=== PATIENT | female | born 1965 | race Hispanic/Latino ===

== ENCOUNTER 2019-04-14 22:35 | Emergency (ER) | payer SELFPAY ==
[2019-04-14 22:52] VITALS: BP 153/71
[2019-04-15 00:43] LABS: Basophils # (Auto) 0.1 K/mm3 (0.0-0.1); Basophils % (Auto) 0.7 % (0.0-1.8); Eosinophils # (Auto) 0.2 K/mm3 (0.0-0.4); Eosinophils % (Auto) 2.2 % (0.0-4.3); Hematocrit 39.9 % (30.3-42.9); Hemoglobin 13.5 gm/dl (10.1-14.3); Lymphocytes % (Auto) 33.9 % (13.4-35.0); Mean Corpuscular HGB Conc 34 % (30-34); Mean Corpuscular Volume 91 fl (79-97); Monocytes # (Auto) 0.7 K/mm3 (0.0-0.8); Monocytes % (Auto) 7.8 % (0.0-7.3); Platelet Count 237 K/mm3 (140-440); Red Blood Count 4.38 M/mm3 (3.65-5.03); Red Cell Distribution Width 15.1 % (13.2-15.2)
[2019-04-15 01:09] LABS: Alanine Aminotransferase 12 units/L (7-56); Albumin 3.7 g/dL (3.9-5); BUN/Creatinine Ratio 15; Blood Urea Nitrogen 12 mg/dL (7-17); Calcium 9.1 mg/dL (8.4-10.2); Hemolysis Index 12
[2019-04-15] MEDS ORDERED: LASIX PO ONE (01:38)
--- NOTE | 2019-04-15 01:42 | Emergency Department Report ---
ED Extremity Problem HPI - General Chief complaint: Extremity Injury, Lower Stated complaint: LEG PAIN, FOOT PAIN Time Seen by Provider: 04/15/19 00:03 Source: patient Mode of arrival: Ambulatory Limitations: No Limitations - History of Present Illness Initial comments: pt is a 53 yo female who presents for chronic BLE edema that began a year ago. She states she chronically has left sided lower extremity swelling more than the right lower extremity. The patient states she has seen her doctor several times for this and states she does not know what it is from. The patient states she also has a rash to the bilateral hands that began yesterday. The patient states she has been constantly washing her hands at work in dish water. The patient denies any itching. no PMHx, no daily meds. The patient is a smoker, non drinker, no drug use. - Related Data Previous Rx's Medication Instructions Recorded Last Taken Type Ibuprofen [Motrin 600 MG tab] 600 mg PO Q8H PRN #14 tablet 09/20/18 Unknown Rx Clotrimazole/Betamethasone Dip 1 gm TP BID 7 Days cream..g. 04/15/19 Unknown Rx [Lotrisone Cream] Allergies Allergy/AdvReac Type Severity Reaction Status Date / Time carisoprodol [From Soma] Allergy Intermediate Unknown Verified 09/20/18 21:23 ED Review of Systems ROS: Stated complaint: LEG PAIN, FOOT PAIN Other details as noted in HPI Comment: All other systems reviewed and negative ED Past Medical Hx - Past Medical History Previous Medical History?: No - Surgical History Past Surgical History?: No Additional Surgical History: Partial Thyroid removal - Social History Smoking Status: Current Every Day Smoker - Medications Home Medications: Home Medications Medication Instructions Recorded Confirmed Last Taken Type Ibuprofen [Motrin 600 MG tab] 600 mg PO Q8H PRN #14 tablet 09/20/18 Unknown Rx Clotrimazole/Betamethasone Dip 1 gm TP BID 7 Days cream..g. 04/15/19 Unknown Rx [Lotrisone Cream] ED Physical Exam - General Limitations: No Limitations General appearance: alert, in no apparent distress - Head Head exam: Present: atraumatic, normocephalic - Eye Eye exam: Present: normal appearance - Respiratory Respiratory exam: Present: normal lung sounds bilaterally. Absent: respiratory distress, wheezes, rales, rhonchi, stridor, chest wall tenderness, accessory muscle use, decreased breath sounds, prolonged expiratory - Cardiovascular Cardiovascular Exam: Present: regular rate, normal rhythm, normal heart sounds. Absent: systolic murmur, diastolic murmur, rubs, gallop - Extremities Exam Extremities exam: Present: other (bilateral LE edema, left greater than right, non pitting, no skin changes) - Neurological Exam Neurological exam: Present: alert, oriented X3 - Psychiatric Psychiatric exam: Present: normal affect, normal mood - Skin Skin exam: Present: warm, dry, other (small areas of macules/blisters to the dorsal surface of the hands, no rash present on the palmar surface, no drainage) ED Course Vital Signs 04/14/19 04/14/19 04/15/19 22:42 22:49 02:23 Temperature 98.3 F 98.3 F 98.3 F Pulse Rate 89 88 88 Respiratory 18 18 18 Rate Blood Pressure 153/71 153/71 O2 Sat by Pulse 98 97 97 Oximetry ED Medical Decision Making - Lab Data Result diagrams: 04/15/19 00:20 04/15/19 00:20 Lab Results 04/15/19 04/15/19 Range/Units 00:20 00:20 WBC 8.8 (4.5-11.0) K/mm3 RBC 4.38 (3.65-5.03) M/mm3 Hgb 13.5 (10.1-14.3) gm/dl Hct 39.9 (30.3-42.9) % MCV 91 (79-97) fl MCH 31 (28-32) pg MCHC 34 (30-34) % RDW 15.1 (13.2-15.2) % Plt Count 237 (140-440) K/mm3 Lymph % (Auto) 33.9 (13.4-35.0) % Polk % (Auto) 7.8 H (0.0-7.3) % Eos % (Auto) 2.2 (0.0-4.3) % Baso % (Auto) 0.7 (0.0-1.8) % Lymph # 3.0 (1.2-5.4) K/mm3 Polk # 0.7 (0.0-0.8) K/mm3 Eos # 0.2 (0.0-0.4) K/mm3 Baso # 0.1 (0.0-0.1) K/mm3 Seg Neutrophils % 55.4 (40.0-70.0) % Seg Neutrophils # 4.9 (1.8-7.7) K/mm3 Sodium 138 (137-145) mmol/L Potassium 3.9 (3.6-5.0) mmol/L Chloride 102.3 (98-107) mmol/L Carbon Dioxide 22 (22-30) mmol/L Anion Gap 18 mmol/L BUN 12 (7-17) mg/dL Creatinine 0.8 (0.7-1.2) mg/dL Estimated GFR > 60 ml/min BUN/Creatinine Ratio 15 % Glucose 181 H (65-100) mg/dL Calcium 9.1 (8.4-10.2) mg/dL Total Bilirubin < 0.20 (0.1-1.2) mg/dL AST 11 (5-40) units/L ALT 12 (7-56) units/L Alkaline Phosphatase 67 (35-129) units/L NT-Pro-B Natriuret Pep 29.99 (0-900) pg/mL Total Protein 6.9 (6.3-8.2) g/dL Albumin 3.7 L (3.9-5) g/dL Albumin/Globulin Ratio 1.2 % - Medical Decision Making labs with normal kidney function, normal liver function, normal BNP. pt given a dose of lasix for her chronic LE edema while in the ED. advised to see her PCP in the next 2-3 days. pt rash on her hands appears consistent with contact dermatitis. pt given lotrisone, advised to use as prescribed. discussed to discuss with her PCP as well. return to the emergency room for any new or worsening symptoms. Critical care attestation.: If time is entered above; I have spent that time in minutes in the direct care of this critically ill patient, excluding procedure time. ED Disposition Clinical Impression: Swelling of both lower extremities, Rash Disposition: DC-01 TO HOME OR SELFCARE Is pt being admited?: No Does the pt Need Aspirin: No Condition: Stable Instructions: Acute Rash (ED), Leg Edema (ED) Additional Instructions: Please use medication as prescribed. follow up with your primary care doctor in the next 2-3 days. return to the emergency room for any new or worsening symptoms. Prescriptions: Clotrimazole/Betamethasone Dip [Lotrisone Cream] 1 gm TP BID 7 Days cream..g. Referrals: BRIAN FERGUSON MD [Primary Care Provider] - 2-3 Days Time of Disposition: 01:47 Print Language: LATVIAN
== END 2019-04-15 02:24 | disposition home or self-care (01) ==
LOC: ED 22:35
DX: R60.0 Localized edema (principal); R21 Rash and other nonspecific skin eruption
CPT/HCPCS: 36415; 80053; 83880; 85025

== ENCOUNTER 2019-05-30 22:44 | Emergency (ER) | payer SELFPAY ==
[2019-05-30 22:55] VITALS: BP 148/58
[2019-05-30 23:24] LABS: Basophils # (Auto) 0.1 K/mm3 (0.0-0.1); Eosinophils # (Auto) 0.1 K/mm3 (0.0-0.4); Eosinophils % (Auto) 1.1 % (0.0-4.3); Hematocrit 39.4 % (30.3-42.9); Hemoglobin 13.5 gm/dl (10.1-14.3); Lymphocytes # (Auto) 2.5 K/mm3 (1.2-5.4); Lymphocytes % (Auto) 20.3 % (13.4-35.0); Mean Corpuscular HGB Conc 34 % (30-34); Mean Corpuscular Volume 91 fl (79-97); Monocytes # (Auto) 0.8 K/mm3 (0.0-0.8); Monocytes % (Auto) 6.7 % (0.0-7.3); Platelet Count 235 K/mm3 (140-440); Red Blood Count 4.34 M/mm3 (3.65-5.03)
[2019-05-30 23:44] LABS: Albumin 3.9 g/dL (3.9-5)
[2019-05-31] MEDS ORDERED: TYLENOL PO ONE (02:07)
[2019-05-31] MEDS ORDERED: IBUPROFEN PO ONE (02:07)
[2019-05-31 04:06] LABS: Bilirubin,Urine NEG (Negative); Blood,Urine LG (Negative); Calcium Oxalate Crystals,Urine 3+; Color,Urine Amber (Yellow); Mucus,Urine FEW /HPF
[2019-05-31 04:07] LABS: RBC,Urine > 182.0 /HPF (0.0-6.0)
[2019-05-31] MEDS ORDERED: LEVAQUIN PO ONE (04:21)
--- NOTE | 2019-05-31 04:25 | Emergency Department Report ---
ED General Adult HPI - General Chief complaint: Back Pain/Injury Stated complaint: BACK PAIN, CRAMPING IN LEGS Time Seen by Provider: 05/31/19 01:50 Source: patient Mode of arrival: Ambulatory Limitations: No Limitations - History of Present Illness Initial comments: Patient is a 53-year-old white female with a history of chronic back pain who presents to the ED with complaint of acute exacerbation of her chronic back pain but it is diffuse into her lower extremities bilaterally for the last 1 week, worse in the last 2 days. Patient also complains of diffuse body aches and pains with urinary frequency and urgency. Patient denies fever, chills, nausea, vomiting, abdominal pain, chest pain, heavy lifting, traumatic injury, dizziness, numbness and tingling of upper and lower extremities bilaterally, saddle paresthesia, urinary or bowel incontinence or fall. MD Complaint: Back pain with diffuse body aches -: Gradual, week(s) (1) Location: back, upper extremity, lower extremity Radiation: non-radiation Severity scale (0 -10): 7 Quality: aching, sharp Consistency: constant Improves with: none Worsens with: none Associated Symptoms: denies other symptoms, malaise. denies: confusion, cough, diaphoresis, fever/chills, headaches, loss of appetite, nausea/vomiting, rash, seizure, shortness of breath, syncope, weakness Treatments Prior to Arrival: none - Related Data Previous Rx's Medication Instructions Recorded Last Taken Type Ibuprofen [Motrin 600 MG tab] 600 mg PO Q8H PRN #14 tablet 09/20/18 Unknown Rx Clotrimazole/Betamethasone Dip 1 gm TP BID 7 Days cream..g. 04/15/19 Unknown Rx [Lotrisone Cream] Naproxen [Naprosyn TAB] 500 mg PO BID PRN #20 tablet 05/31/19 Unknown Rx Sulfamethoxazole/Trimethoprim 1 each PO Q12H #20 tablet 05/31/19 Unknown Rx [Bactrim DS TAB] predniSONE [Deltasone] 60 mg PO QDAY #15 tab 05/31/19 Unknown Rx traMADol [Ultram] 50 mg PO Q6HR PRN #12 tablet 05/31/19 Unknown Rx Allergies Allergy/AdvReac Type Severity Reaction Status Date / Time carisoprodol [From Soma] Allergy Intermediate Unknown Verified 10/31/18 21:23 ED Review of Systems ROS: Stated complaint: BACK PAIN, CRAMPING IN LEGS Other details as noted in HPI Constitutional: denies: chills, fever Eyes: denies: eye pain, eye discharge, vision change ENT: denies: ear pain, throat pain Respiratory: denies: cough, shortness of breath, wheezing Cardiovascular: denies: chest pain, palpitations Endocrine: no symptoms reported Gastrointestinal: denies: abdominal pain, nausea, diarrhea Genitourinary: denies: urgency, dysuria, discharge Musculoskeletal: back pain, arthralgia, myalgia. denies: joint swelling Skin: denies: rash, lesions Neurological: denies: headache, weakness, paresthesias Psychiatric: denies: anxiety, depression Hematological/Lymphatic: denies: easy bleeding, easy bruising ED Past Medical Hx - Past Medical History Previous Medical History?: No - Surgical History Past Surgical History?: Yes Additional Surgical History: Partial Thyroid removal - Social History Smoking Status: Current Every Day Smoker Substance Use Type: None - Medications Home Medications: Home Medications Medication Instructions Recorded Confirmed Last Taken Type Ibuprofen [Motrin 600 MG tab] 600 mg PO Q8H PRN #14 tablet 09/20/18 Unknown Rx Clotrimazole/Betamethasone Dip 1 gm TP BID 7 Days cream..g. 04/15/19 Unknown Rx [Lotrisone Cream] Naproxen [Naprosyn TAB] 500 mg PO BID PRN #20 tablet 05/31/19 Unknown Rx Sulfamethoxazole/Trimethoprim 1 each PO Q12H #20 tablet 05/31/19 Unknown Rx [Bactrim DS TAB] predniSONE [Deltasone] 60 mg PO QDAY #15 tab 05/31/19 Unknown Rx traMADol [Ultram] 50 mg PO Q6HR PRN #12 tablet 05/31/19 Unknown Rx ED Physical Exam - General Limitations: No Limitations General appearance: alert, in no apparent distress - Head Head exam: Present: atraumatic, normocephalic, normal inspection - Eye Eye exam: Present: normal appearance, PERRL, EOMI. Absent: scleral icterus, conjunctival injection, nystagmus Pupils: Present: normal accommodation - ENT ENT exam: Present: normal exam, normal orophraynx, mucous membranes moist, TM's normal bilaterally, normal external ear exam - Neck Neck exam: Present: normal inspection, full ROM - Respiratory Respiratory exam: Present: normal lung sounds bilaterally. Absent: respiratory distress, wheezes, rales, rhonchi, chest wall tenderness, accessory muscle use, decreased breath sounds, prolonged expiratory - Cardiovascular Cardiovascular Exam: Present: regular rate, normal rhythm, normal heart sounds. Absent: systolic murmur, diastolic murmur, rubs, gallop - GI/Abdominal GI/Abdominal exam: Present: soft, normal bowel sounds. Absent: distended, tenderness, guarding, rebound, hyperactive bowel sounds, hypoactive bowel sounds, organomegaly, mass - Rectal Rectal exam: Present: deferred - Extremities Exam Extremities exam: Present: normal inspection, full ROM, normal capillary refill - Back Exam Back exam: Present: normal inspection, full ROM, tenderness, CVA tenderness (R), CVA tenderness (L), muscle spasm, paraspinal tenderness, other (diffuse palpable lumbosacral paraspinal musculoskeletal tenderness; bilateral CVA tenderness) - Neurological Exam Neurological exam: Present: alert, oriented X3, CN II-XII intact, normal gait, reflexes normal - Psychiatric Psychiatric exam: Present: normal affect, normal mood - Skin Skin exam: Present: warm, dry, intact, normal color. Absent: rash ED Course Vital Signs 05/30/19 22:49 Temperature 98.7 F Pulse Rate 84 Respiratory 14 Rate Blood Pressure 148/58 O2 Sat by Pulse 97 Oximetry - Reevaluation(s) Reevaluation #1: 05/31/19 04:26 Patient is alert and oriented 3 and is not in any distress with normal vital signs. Patient is somnolent and the physical exam but arousable. Lab test results shows acute leukocytosis of 12,400, and significant unit tract infection and urinalysis. Patient was treated for pain in the ED and on reevaluation, patient is well controlled and patient is sleeping comfortably in the chair and in no distress. Patient discharged home and pain medications and muscle relaxants as well as antibiotics for acute urinary tract infection. Patient is advised to follow-up with her primary care physician in 7-10 days for reevaluation or return to the ED immediately if symptoms get worse. ED Medical Decision Making - Lab Data Result diagrams: 05/30/19 23:02 05/30/19 23:02 - Medical Decision Making Patient is alert and oriented 3 and is not in any distress with normal vital signs. Patient is somnolent and the physical exam but arousable. Lab test results shows acute leukocytosis of 12,400, and significant unit tract infection and urinalysis. Patient was treated for pain in the ED and on reevaluation, patient is well controlled and patient is sleeping comfortably in the chair and in no distress. Patient discharged home and pain medications and muscle relaxants as well as antibiotics for acute urinary tract infection. Patient is advised to follow-up with her primary care physician in 7-10 days for reevaluation or return to the ED immediately if symptoms get worse. - Differential Diagnosis Acute UTI; Chronic low back pain; Muscle spasm of back Critical care attestation.: If time is entered above; I have spent that time in minutes in the direct care of this critically ill patient, excluding procedure time. ED Disposition Clinical Impression: Acute exacerbation of chronic low back pain, Acute urinary tract infection, Spasm of muscle of lower back Disposition: DC- TO HOME OR SELFCARE Is pt being admited?: No Does the pt Need Aspirin: No Condition: Stable Instructions: Urinary Tract Infection in Women (ED), Muscle Spasm (ED), Chronic Back Pain (ED) Additional Instructions: Take medications with food, drink plenty of fluids and follow up with your primary care physician in 7-10 days for reevaluation. Return to the ED immediately if symptoms get worse. Prescriptions: Sulfamethoxazole/Trimethoprim [Bactrim DS TAB] 1 each PO Q12H #20 tablet predniSONE [Deltasone] 60 mg PO QDAY #15 tab Naproxen [Naprosyn TAB] 500 mg PO BID PRN #20 tablet PRN Reason: Pain , Severe (7-10) traMADol [Ultram] 50 mg PO Q6HR PRN #12 tablet PRN Reason: Pain Referrals: [facility] [Outside] - 3-5 Days Time of Disposition: 04:29 Print Language: [place]
== END 2019-05-31 04:45 | disposition home or self-care (01) ==
LOC: ED 22:44
DX: N39.0 Urinary tract infection, site not specified (principal); M62.830 Muscle spasm of back; M54.5 Low back pain
CPT/HCPCS: 36415; 80053; 81001; 85025

== ENCOUNTER 2019-07-03 17:30 | Emergency (ER) | payer OTHER ==
--- NOTE | 2019-07-03 17:43 | Event Note ---
ED Screening Note ED Screening Note: pt presents with a cough that began two weeks ago +mucus production +congestion +subjective fever +smoker This initial assessment/diagnostic orders/clinical plan/treatment(s) is/are subject to change based on patients health status, clinical progression and re- assessment by fellow clinical providers in the ED. Further treatment and workup at subsequent clinical providers discretion. Patient/guardian urged not to elope from the ED as their condition may be serious if not clinically assessed and m anaged. Initial orders include: CXR
[2019-07-03 17:46] VITALS: BP 123/68
--- NOTE | 2019-07-03 18:14 | XRay Report ---
CHEST 2 VIEWS INDICATION: cough. COMPARISON: None. FINDINGS: Support devices: None. Heart: Within normal limits. Lungs/Pleura: No acute air space or interstitial disease. No significant pleural effusion. IMPRESSION: No acute findings. Signer Name: Harsha Bonner MD Signed: 07/03/2019 6:10 PM Workstation Name: [id number]
[2019-07-03 19:08] LABS: Bacteria,Urine 1+ /HPF (Negative); Bilirubin,Urine NEG (Negative); Blood,Urine SM (Negative); Color,Urine Yellow (Yellow); Mucus,Urine FEW /HPF; Protein,Urine <15 mg/dL mg/dL (Negative)
[2019-07-03] MEDS ORDERED: TYLENOL/CODEINE PO ONE (19:58)
--- NOTE | 2019-07-03 20:14 | Emergency Department Report ---
Minor Respiratory - HPI Chief Complaint: Upper Respiratory Infection Stated Complaint: FEVER /COUGHING/CHEST CONGESTION Time Seen by Provider: 07/03/19 17:41 Duration: 2 Days Severity: mild Minor Respiratory: Yes Cough, No Rhinorrhea, No Sore Throat, No Able to Tolerate Fluids, No Ear Pain, No Sick Contacts, No Hemoptysis, No Chest Pain, No Shortness of Breath, No Fever Other History: This is a 53-year-old female presents complaining of intermittent in coughing for the past couple weeks. Patient also complaining of her right foot pain. She denies any injuries trauma or fall to the foot. Patient states she has a history of a right foot pain 2-3 years ago. ED Review of Systems ROS: Stated complaint: FEVER /COUGHING/CHEST CONGESTION Other details as noted in HPI Comment: All other systems reviewed and negative ED Past Medical Hx - Past Medical History Previous Medical History?: No - Surgical History Past Surgical History?: Yes Additional Surgical History: Partial Thyroid removal - Social History Smoking Status: Never Smoker Substance Use Type: None - Medications Home Medications: Home Medications Medication Instructions Recorded Confirmed Last Taken Type Ibuprofen [Motrin 600 MG tab] 600 mg PO Q8H PRN #14 tablet 09/20/18 Unknown Rx Clotrimazole/Betamethasone Dip 1 gm TP BID 7 Days cream..g. 04/15/19 Unknown Rx [Lotrisone Cream] Sulfamethoxazole/Trimethoprim 1 each PO Q12H #20 tablet 05/31/19 Unknown Rx [Bactrim DS TAB] predniSONE [Deltasone] 60 mg PO QDAY #15 tab 05/31/19 Unknown Rx traMADol [Ultram] 50 mg PO Q6HR PRN #12 tablet 05/31/19 Unknown Rx Benzonatate [Tessalon Perles] 100 mg PO Q8HR #20 capsule 07/03/19 Unknown Rx Cyclobenzaprine [Flexeril] 10 mg PO QHS PRN #15 tablet 07/03/19 Unknown Rx Naproxen [Naprosyn TAB] 500 mg PO BID PRN #20 tablet 07/03/19 Unknown Rx Minor Respiratory Exam - Exam General: Vital signs noted. No distress. Alert and acting appropriately. HEENT: Yes Moist Mucous Membranes, No Pharyngeal Erythema, No Pharyngeal Exudates, No Rhinorrhea, No Conjuctival Injection, No Frontal Tenderness, No Maxillary Tenderness Ear: Neither TM Bulge, Neither TM Erythema, Neither EAC Pain, Neither EAC Discharge Neck: Yes Supple, No Adenopathy Lungs: Yes Good Air Exchange, No Wheezes, No Ronchi, No Stridor, No Cough, No Labored Respirations, No Retractions, No Use of Accessory Muscles, No Other Abnormal Lung Sounds Heart: Yes Regular, No Murmur Abdomen: Yes Normal Bowel Sounds, No Tenderness, No Peritoneal Signs Skin: No Rash, No Edema Neurologic: Alert and oriented, no deficits. Musculoskeletal: Unremarkable. No swelling, no deformity, no tenderness noted to the right foot upon palpation ED Course Vital Signs 07/03/19 17:41 Temperature 98.6 F Pulse Rate 91 H Respiratory 16 Rate Blood Pressure 123/68 [Left] O2 Sat by Pulse 98 Oximetry ED Medical Decision Making - Radiology Data Radiology results: report reviewed, image reviewed Fluoro Time In Minutes: CHEST 2 VIEWS INDICATION: cough. COMPARISON: None. FINDINGS: Support devices: None. Heart: Within normal limits. Lungs/Pleura: No acute air space or interstitial disease. No significant pleural effusion. IMPRESSION: No acute findings. Signer Name: Harsha Bonner MD Signed: 07/03/2019 6:10 PM Workstation Name: [id number] Transcribed By: ES Dictated By: Harsha Bonner MD Electronically Authenticated By: Harsha Bonner MD Signed Date/Time: 07/03/19 1810 - Medical Decision Making This is a 53-year-old female presents with upper respiratory infection Patient also complaining of right foot pain from hairline fracture she had many years ago. Chest x-ray shows no acute symptoms. Patient received Tylenol with codeine in the ED. Discussed follow-up with primary care physician in 3-5 days. Patient is in no acute distress or respiratory distress Critical care attestation.: If time is entered above; I have spent that time in minutes in the direct care of this critically ill patient, excluding procedure time. ED Disposition Clinical Impression: Upper respiratory infection, Foot pain, right Disposition: DC-01 TO HOME OR SELFCARE Is pt being admited?: No Does the pt Need Aspirin: No Condition: Stable Instructions: Upper Respiratory Infection (ED), Arthralgia (ED) Additional Instructions: Make sure to follow up with the primary care physician as discussed. Take all your medications as you've been prescribed. If you have any worsening symptoms or develop new symptoms please return to ED immediately. Prescriptions: Cyclobenzaprine [Flexeril] 10 mg PO QHS PRN #15 tablet PRN Reason: Muscle Spasm Naproxen [Naprosyn TAB] 500 mg PO BID PRN #20 tablet PRN Reason: Pain , Severe (7-10) Benzonatate [Tessalon Perles] 100 mg PO Q8HR #20 capsule Referrals: BRIAN FERGUSON MD [Primary Care Provider] - 3-5 Days [facility] [Outside] - 3-5 Days [facility] [Outside] - 3-5 Days Forms: Work/School Release Form(ED), Accompanied Note Time of Disposition: 20:45
== END 2019-07-03 20:54 | disposition home or self-care (01) ==
LOC: ED 17:30
DX: J06.9 Acute upper respiratory infection, unspecified (principal); M79.671 Pain in right foot; E89.0 Postprocedural hypothyroidism; F17.200 Nicotine dependence, unspecified, uncomplicated; Z79.899 Other long term (current) drug therapy; Z88.8 Allergy status to other drugs, medicaments and biological substances
CPT/HCPCS: 71046; 81001

== ENCOUNTER 2019-07-05 04:18 | Emergency (ER) | payer OTHER ==
--- NOTE | 2019-07-05 05:15 | XRay Report ---
CHEST 2 VIEWS INDICATION: productive cough, intermittent fever. Cough for the past 6 months COMPARISON: 07/03/2019 FINDINGS: Support devices: None. Heart: Within normal limits. Lungs/pleura: Rounded nodular density over the medial right lung base measuring 3.8 cm. Otherwise neville ar lungs. No pneumothorax. Additional findings: None. IMPRESSION: 1. Medial right basilar masslike density as above. Recommend follow-up CT chest with contrast. Otherw ise clear lungs. Signer Name: Dev Francois MD Signed: 07/05/2019 5:11 AM Workstation Name: [id number]
[2019-07-05 05:34] LABS: Basophils % (Auto) 0.6 % (0.0-1.8); Eosinophils # (Auto) 0.1 K/mm3 (0.0-0.4); Eosinophils % (Auto) 1.6 % (0.0-4.3); Hematocrit 39.4 % (30.3-42.9); Hemoglobin 13.5 gm/dl (10.1-14.3); Lymphocytes # (Auto) 1.8 K/mm3 (1.2-5.4); Lymphocytes % (Auto) 21.6 % (13.4-35.0); Mean Corpuscular HGB Conc 34 % (30-34); Mean Corpuscular Volume 90 fl (79-97); Monocytes # (Auto) 0.6 K/mm3 (0.0-0.8); Monocytes % (Auto) 7.7 % (0.0-7.3); Platelet Count 250 K/mm3 (140-440); Red Blood Count 4.37 M/mm3 (3.65-5.03); Red Cell Distribution Width 15.1 % (13.2-15.2)
[2019-07-05] MEDS ORDERED: DUONEB *Not for PRN Use IH ONE (05:39)
[2019-07-05] MEDS ORDERED: IBUPROFEN PO ONE (05:39)
[2019-07-05] MEDS ORDERED: SOLU-Medrol IM ONE (05:39)
[2019-07-05 05:54] LABS: Albumin 3.5 g/dL (3.9-5); Calcium 8.9 mg/dL (8.4-10.2)
[2019-07-05 06:32] LABS: Bilirubin,Urine NEG (Negative); Blood,Urine NEG (Negative); Color,Urine Yellow (Yellow); Mucus,Urine FEW /HPF; Protein,Urine <15 mg/dL mg/dL (Negative)
--- NOTE | 2019-07-05 06:45 | Emergency Department Report ---
- General Chief Complaint: Upper Respiratory Infection Stated Complaint: FEVER/CONGESTION/FOOT SWELLING Time Seen by Provider: 07/05/19 05:25 Source: patient Mode of arrival: Ambulatory Limitations: No Limitations - History of Present Illness Initial Comments: Patient is a 53-year-old white female with a medical history except heavy chronic tobacco smoking habit presented to the ED with acute onset of persistent nasal and sinus congestion, frontal sinus pressure, dry cough, wheezing and shortness of breath for the last 1 week, worse in the last 2 days. Patient denies dizziness, chest pain, fever, chills, abdominal pain, diaphoresis, sore throat, headache, neck pain, change in vision, palpitations, nausea, vomiting, diarrhea or syncope MD Complaint: cough, rhinorrhea, nasal congestion, sinus pain -: Sudden, week(s) Severity: severe Severity scale (0 -10): 7 Quality: aching, other (tightness) Consistency: intermittent Improves With: nothing Worsens With: nothing Context: sick contacts Associated Symptoms: denies other symptoms, myalgias, headache, rhinorrhea, nasal congestion, cough, shortness of breath. denies: fever, chills, diaphoresis, abdominal pain, nausea, vomiting, diarrhea, dysuria, confusion, right sweats, weight loss, epistaxis, hoarseness, ear pain Treatments Prior to Arrival: none - Related Data Previous Rx's Medication Instructions Recorded Last Taken Type Ibuprofen [Motrin 600 MG tab] 600 mg PO Q8H PRN #14 tablet 09/20/18 Unknown Rx Clotrimazole/Betamethasone Dip 1 gm TP BID 7 Days cream..g. 04/15/19 Unknown Rx [Lotrisone Cream] Sulfamethoxazole/Trimethoprim 1 each PO Q12H #20 tablet 05/31/19 Unknown Rx [Bactrim DS TAB] predniSONE [Deltasone] 60 mg PO QDAY #15 tab 05/31/19 Unknown Rx traMADol [Ultram] 50 mg PO Q6HR PRN #12 tablet 05/31/19 Unknown Rx Benzonatate [Tessalon Perles] 100 mg PO Q8HR #20 capsule 07/03/19 Unknown Rx Cyclobenzaprine [Flexeril] 10 mg PO QHS PRN #15 tablet 07/03/19 Unknown Rx Naproxen [Naprosyn TAB] 500 mg PO BID PRN #20 tablet 07/03/19 Unknown Rx ALBUTEROL Inhaler (OR & NICU) 1 - 2 puff IH Q6H PRN #1 inhalation 07/05/19 Unknown Rx [ProAir HFA Inhaler] Amoxicillin/Potassium Clav 1 each PO Q12H #20 tablet 07/05/19 Unknown Rx [Augmentin 875-125 Tablet] Brompheniramine/Pseudoephed/Dm 5 ml PO Q6H PRN #118 ml 07/05/19 Unknown Rx [Bromfed Dm Cough Syrup] Cetirizine HCl [Zyrtec 10mg tab] 10 mg PO DAILY #30 tablet 07/05/19 Unknown Rx Ibuprofen [Motrin] 600 mg PO Q8H PRN #20 tablet 07/05/19 Unknown Rx Prednisone [predniSONE 10 mg 10 mg PO .TAPER #21 tab.ds.pk 07/05/19 Unknown Rx (6-Day Pack, 21 Tabs)] Allergies Allergy/AdvReac Type Severity Reaction Status Date / Time carisoprodol [From Soma] Allergy Intermediate Unknown Verified 09/20/18 21:23 ED Review of Systems ROS: Stated complaint: FEVER/CONGESTION/FOOT SWELLING Other details as noted in HPI Constitutional: denies: chills, fever Eyes: denies: eye pain, eye discharge, vision change ENT: congestion. denies: ear pain, throat pain Respiratory: cough, shortness of breath, wheezing Cardiovascular: denies: chest pain, palpitations, edema, syncope Endocrine: no symptoms reported. denies: increased thirst, increased urine, unexplained weight gain Gastrointestinal: denies: abdominal pain, nausea, diarrhea Genitourinary: denies: urgency, dysuria, discharge Musculoskeletal: denies: back pain, joint swelling, arthralgia Skin: denies: rash, lesions Neurological: headache. denies: weakness, paresthesias Psychiatric: denies: anxiety, depression Hematological/Lymphatic: denies: easy bleeding, easy bruising ED Past Medical Hx - Past Medical History Previous Medical History?: Yes Additional medical history: enlarged uterus/in process of scheduling appt for hysterectomy - Surgical History Past Surgical History?: Yes Additional Surgical History: Partial Thyroid removal - Social History Smoking Status: Current Every Day Smoker Substance Use Type: None - Medications Home Medications: Home Medications Medication Instructions Recorded Confirmed Last Taken Type Ibuprofen [Motrin 600 MG tab] 600 mg PO Q8H PRN #14 tablet 09/20/18 Unknown Rx Clotrimazole/Betamethasone Dip 1 gm TP BID 7 Days cream..g. 04/15/19 Unknown Rx [Lotrisone Cream] Sulfamethoxazole/Trimethoprim 1 each PO Q12H #20 tablet 05/31/19 Unknown Rx [Bactrim DS TAB] predniSONE [Deltasone] 60 mg PO QDAY #15 tab 05/31/19 Unknown Rx traMADol [Ultram] 50 mg PO Q6HR PRN #12 tablet 05/31/19 Unknown Rx Benzonatate [Tessalon Perles] 100 mg PO Q8HR #20 capsule 07/03/19 Unknown Rx Cyclobenzaprine [Flexeril] 10 mg PO QHS PRN #15 tablet 07/03/19 Unknown Rx Naproxen [Naprosyn TAB] 500 mg PO BID PRN #20 tablet 07/03/19 Unknown Rx ALBUTEROL Inhaler (OR & NICU) 1 - 2 puff IH Q6H PRN #1 inhalation 07/05/19 Unknown Rx [ProAir HFA Inhaler] Amoxicillin/Potassium Clav 1 each PO Q12H #20 tablet 07/05/19 Unknown Rx [Augmentin 875-125 Tablet] Brompheniramine/Pseudoephed/Dm 5 ml PO Q6H PRN #118 ml 07/05/19 Unknown Rx [Bromfed Dm Cough Syrup] Cetirizine HCl [Zyrtec 10mg tab] 10 mg PO DAILY #30 tablet 07/05/19 Unknown Rx Ibuprofen [Motrin] 600 mg PO Q8H PRN #20 tablet 07/05/19 Unknown Rx Prednisone [predniSONE 10 mg 10 mg PO .TAPER #21 tab.ds.pk 07/05/19 Unknown Rx (6-Day Pack, 21 Tabs)] ED Physical Exam - General Limitations: No Limitations General appearance: alert, in no apparent distress - Head Head exam: Present: atraumatic, normocephalic, normal inspection - Eye Eye exam: Present: normal appearance, PERRL, EOMI Pupils: Present: normal accommodation - ENT ENT exam: Present: normal orophraynx, mucous membranes moist, TM's normal bilaterally, normal external ear exam, other (grossly congested nasal passages, frontal sinus pressure and tenderness) - Neck Neck exam: Present: normal inspection, full ROM. Absent: tenderness, meningismus, lymphadenopathy, thyromegaly - Respiratory Respiratory exam: Present: wheezes (diffuse mild wheezes throughout). Absent: respiratory distress, rales, rhonchi, chest wall tenderness, accessory muscle use, decreased breath sounds - Cardiovascular Cardiovascular Exam: Present: regular rate, normal rhythm, normal heart sounds. Absent: systolic murmur, diastolic murmur, rubs, gallop - GI/Abdominal GI/Abdominal exam: Present: soft, normal bowel sounds. Absent: tenderness, rebound, hyperactive bowel sounds, hypoactive bowel sounds, organomegaly - Rectal Rectal exam: Present: deferred - Extremities Exam Extremities exam: Present: normal inspection, full ROM, normal capillary refill - Back Exam Back exam: Present: normal inspection, full ROM. Absent: tenderness, CVA tenderness (R), CVA tenderness (L), muscle spasm, paraspinal tenderness - Neurological Exam Neurological exam: Present: alert, oriented X3, CN II-XII intact, normal gait, reflexes normal - Psychiatric Psychiatric exam: Present: normal affect, normal mood - Skin Skin exam: Present: warm, dry, intact, normal color. Absent: rash ED Course Vital Signs 07/05/19 04:26 Temperature 98 F Pulse Rate 82 Respiratory 18 Rate Blood Pressure 151/78 [Left] O2 Sat by Pulse 97 Oximetry - Reevaluation(s) Reevaluation #1: 07/05/19 07:17 This is a 53-year-old white female who is a chronic tobacco smoker who presents to the ED with complaint of persistent nasal and sinus congestion, frontal sinus pressure and tightness, dry cough with wheezing and shortness of breath for the last 1 week, worse in the last 2 days. The ED, patient is alert and oriented 3 and is not in distress with normal vital signs. Patient was treated in the ED with supplemental, DuoNeb. Medication. On reevaluation, patient's wheezing resolved and patient stated that she is feeling better. Lab test results were reviewed and are unremarkable. Chest x-ray shows a medial right basilar masslike density, and a follow-up CT chest with contrast was recommended outpatient. Otherwise clear lungs. Patient was discharged home on medications and advised to follow-up with her primary care physician for an outpatient referral for CT scan of the chest with contrast to characterize the masslike density in the right medial basilar region of the lung. Patient was also advised to return to the ED immediately if symptoms get worse. ED Medical Decision Making - Lab Data Result diagrams: 07/05/19 05:20 07/05/19 05:20 - Radiology Data Radiology results: report reviewed, image reviewed Findings [facility] [address] [place] [address] XRay Report Signed Patient: GILBERTO ESPARZA MR#: [id number] : 1965 Acct:[id number] Age/Sex: 53 / F ADM Date: 07/05/19 Loc: ED Attending Dr: Ordering Physician: HELEN LOVE MD Date of Service: 07/05/19 Procedure(s): XR chest routine 2V Accession Number(s): [id number] cc: HELEN LOVE MD Fluoro Time In Minutes: CHEST 2 VIEWS INDICATION: productive cough, intermittent fever. Cough for the past 6 months COMPARISON: 07/03/2019 FINDINGS: Support devices: None. Heart: Within normal limits. Lungs/pleura: Rounded nodular density over the medial right lung base measuring 3.8 cm. Otherwise clear lungs. No pneumothorax. Additional findings: None. IMPRESSION: 1. Medial right basilar masslike density as above. Recommend follow-up CT chest with contrast. Otherwise clear lungs. Signer Name: Dev Francois MD Signed: 07/05/2019 5:11 AM Workstation Name: [id number] Transcribed By: CELIA Dictated By: Dev Francois MD Electronically Authenticated By: Dev Francois MD Signed Date/Time: 07/05/19 0511 - Medical Decision Making This is a 53-year-old white female who is a chronic tobacco smoker who presents to the ED with complaint of persistent nasal and sinus congestion, frontal sinus pressure and tightness, dry cough with wheezing and shortness of breath for the last 1 week, worse in the last 2 days. The ED, patient is alert and oriented 3 and is not in distress with normal vital signs. Patient was treated in the ED with supplemental, DuoNeb. Medication. On reevaluation, patient's wheezing resolved and patient stated that she is feeling better. Lab test results were reviewed and are unremarkable. Chest x-ray shows a medial right basilar masslike density, and a follow-up CT chest with contrast was recommended outpatient. Otherwise clear lungs. Patient was discharged home on medications and advised to follow-up with her primary care physician for an outpatient referral for CT scan of the chest with contrast to characterize the masslike density in the right medial basilar region of the lung. Patient verbalized understanding of the recommendation. Patient was also advised to return to the ED immediately if symptoms get worse. - Differential Diagnosis acute sinusitis; acute URI; Bronchitis; Pneumonia; Dyspnea, Lung mass Critical care attestation.: If time is entered above; I have spent that time in minutes in the direct care of this critically ill patient, excluding procedure time. ED Disposition Clinical Impression: Acute upper respiratory infection Acute bronchitis Qualifiers: Bronchitis organism: other organism Qualified Code(s): J20.8 - Acute bronchitis due to other specified organisms Acute frontal sinusitis Qualifiers: Recurrence: not specified as recurrent Qualified Code(s): J01.10 - Acute frontal sinusitis, unspecified Disposition: TO HOME OR SELFCARE Is pt being admited?: No Does the pt Need Aspirin: No Condition: Stable Instructions: Upper Respiratory Infection (ED), Acute Bronchitis (ED), Acute Bacterial Rhinosinusitis (ED) Additional Instructions: Take medications with food, drink plenty of fluids and follow-up with your primary care physician in 7-10 days for reevaluation. Consider quitting tobacco smoking to improve your health. Return to the ED immediately if symptoms get worse. Prescriptions: Amoxicillin/Potassium Clav [Augmentin 875-125 Tablet] 1 each PO Q12H #20 tablet Brompheniramine/Pseudoephed/Dm [Bromfed Dm Cough Syrup] 5 ml PO Q6H PRN #118 ml PRN Reason: Cough Ibuprofen [Motrin] 600 mg PO Q8H PRN #20 tablet PRN Reason: Pain Prednisone [predniSONE 10 mg (6-Day Pack, 21 Tabs)] 10 mg PO .TAPER #21 tab.ds.pk ALBUTEROL Inhaler (OR & NICU) [ProAir HFA Inhaler] 1 - 2 puff IH Q6H PRN #1 inhalation PRN Reason: Shortness Of Breath Cetirizine HCl [Zyrtec 10mg tab] 10 mg PO DAILY #30 tablet Referrals: HERNANDO JEAN BAPTISTE MD [Primary Care Provider] - 3-5 Days Time of Disposition: 06:42 Print Language: SWEDISH
[2019-07-05 07:29] VITALS: BP 116/64
== END 2019-07-05 07:13 | disposition home or self-care (01) ==
LOC: ED 04:18
DX: J06.9 Acute upper respiratory infection, unspecified (principal); J20.8 Acute bronchitis due to other specified organisms; J01.10 Acute frontal sinusitis, unspecified; F17.200 Nicotine dependence, unspecified, uncomplicated; Z90.710 Acquired absence of both cervix and uterus; Z79.899 Other long term (current) drug therapy; Z88.8 Allergy status to other drugs, medicaments and biological substances
CPT/HCPCS: 36415; 71046; 80053; 81001; 83880; 84703; 85025; 94640; 96372; 99284; J2930

== ENCOUNTER 2019-11-22 16:59 | Emergency (ER) | payer SELFPAY ==
--- NOTE | 2019-11-22 20:16 | Event Note ---
ED Screening Note Date of service: 11/22/19 Time: 20:13 ED Screening Note: 54 y o f presents with pelvic pain with dysuria PMH: Extensive Fibroids also cc of vomitting, throat pain and pt visiting from [place] This initial assessment/diagnostic orders/clinical plan/treatment(s) is/are subject to change based on patients health status, clinical progression and re- assessment by fellow clinical providers in the ED. Further treatment and workup at subsequent clinical providers discretion. Patient/guardian urged not to elope from the ED as their condition may be serious if not clinically assessed and managed. Initial orders include: ua, acc eval
[2019-11-22 20:17] VITALS: BP 136/74
[2019-11-22] MEDS ORDERED: IBUPROFEN 800 MG TAB PO ONE (23:14)
--- NOTE | 2019-11-22 23:25 | Emergency Department Report ---
HPI - General Chief Complaint: Abdominal Pain Time Seen by Provider: 11/22/19 23:03 - HPI HPI: Room 45 The patient is a 64-year-old female presenting with a chief complaint of earache. The patient states she had bilateral ear pain and sore throat for the past 3 days. Patient also admits to episodes of vomiting and diarrhea. Patient denies cough or fever. Patient also admits to dysuria for a few days Location: [See above] Duration: [See above] Quality: [See above] Severity: [See above] Timing: [See above] Context: [See above] Modifying factors: [See above] Associated signs and symptoms: [see above] Method of transportation: Patient states she walked and took the bus to the emergency department ED Past Medical Hx - Past Medical History Previous Medical History?: No Additional medical history: enlarged uterus/in process of scheduling appt for hysterectomy - Surgical History Past Surgical History?: Yes Additional Surgical History: Partial Thyroid removal - Family History Family history: no significant - Social History Smoking Status: Current Every Day Smoker (1/3 pack per day) Substance Use Type: None (denies illicit drug use) - Medications Home Medications: Home Medications Medication Instructions Recorded Confirmed Last Taken Type Ibuprofen [Motrin 600 MG tab] 600 mg PO Q8H PRN #14 tablet 09/20/18 Unknown Rx Clotrimazole/Betamethasone Dip 1 gm TP BID 7 Days cream..g. 04/15/19 Unknown Rx [Lotrisone Cream] Sulfamethoxazole/Trimethoprim 1 each PO Q12H #20 tablet 05/31/19 Unknown Rx [Bactrim DS TAB] predniSONE [Deltasone] 60 mg PO QDAY #15 tab 05/31/19 Unknown Rx traMADoL [Ultram] 50 mg PO Q6HR PRN #12 tablet 05/31/19 Unknown Rx Benzonatate [Tessalon Perles] 100 mg PO Q8HR #20 capsule 07/03/19 Unknown Rx Cyclobenzaprine [Flexeril] 10 mg PO QHS PRN #15 tablet 07/03/19 Unknown Rx Naproxen [Naprosyn TAB] 500 mg PO BID PRN #20 tablet 07/03/19 Unknown Rx ALBUTEROL Inhaler (OR & NICU) 1 - 2 puff IH Q6H PRN #1 inhalation 07/05/19 Unknown Rx [ProAir HFA Inhaler] Amoxicillin/Potassium Clav 1 each PO Q12H #20 tablet 07/05/19 Unknown Rx [Augmentin 875-125 Tablet] Brompheniramine/Pseudoephed/Dm 5 ml PO Q6H PRN #118 ml 07/05/19 Unknown Rx [Bromfed Dm Cough Syrup] Cetirizine HCl [Zyrtec 10mg tab] 10 mg PO DAILY #30 tablet 07/05/19 Unknown Rx Ibuprofen [Motrin] 600 mg PO Q8H PRN #20 tablet 07/05/19 Unknown Rx Prednisone [predniSONE 10 mg 10 mg PO .TAPER #21 tab.ds.pk 07/05/19 Unknown Rx (6-Day Pack, 21 Tabs)] Ciprofloxacin HCl [Ciprofloxacin 500 mg PO Q12HR #14 tab 11/22/19 Unknown Rx TAB] HYDROcodone/APAP 5-325 [Narka 1 - 2 each PO Q6HR PRN #10 tablet 11/22/19 Unknown Rx 5/325] Ibuprofen [Motrin 800 MG tab] 800 mg PO Q8HR PRN #20 tablet 11/22/19 Unknown Rx Promethazine [Phenergan] 25 mg PO Q6HR PRN #20 tab 11/23/19 Unknown Rx ED Review of Systems ROS: Stated complaint: ABD PAIN/EARACHE/SORETHROAT Other details as noted in HPI Constitutional: denies: fever Eyes: denies: eye pain ENT: ear pain, throat pain Respiratory: denies: cough Cardiovascular: denies: chest pain Endocrine: no symptoms reported Gastrointestinal: vomiting, diarrhea Musculoskeletal: denies: back pain Neurological: denies: headache Physical Exam - Physical Exam Vital Signs: Vital Signs 11/22/19 20:14 Temperature 98.2 F Pulse Rate 78 Respiratory 18 Rate Blood Pressure 136/74 O2 Sat by Pulse 99 Oximetry Physical Exam: GENERAL: The patient is well-developed well-nourished female lying on a chair not appearing to be in acute distress HEENT: Normocephalic. Atraumatic. Extraocular motions are intact. Patient has moist mucous membranes. TMs clear bilaterally. Uvula midline. No exudates seen NECK: Supple. No meningitic signs are noted. Trachea midline CHEST/LUNGS: There is no respiratory distress noted. SKIN: There is no rash. There is no edema. There is no diaphoresis. NEURO: The patient is awake, alert, and oriented. The patient is cooperative. The patient has normal speech MUSCULOSKELETAL: There is no evidence of acute injury. ED Course Vital Signs 11/22/19 20:14 Temperature 98.2 F Pulse Rate 78 Respiratory 18 Rate Blood Pressure 136/74 O2 Sat by Pulse 99 Oximetry ED Medical Decision Making - Lab Data Laboratory Tests 11/22/19 23:00 Urine Color Yellow Urine Turbidity Clear Urine pH 5.0 Ur Specific [place] 1.023 Urine Protein <15 mg/dl Urine Glucose (UA) Neg Urine Ketones Neg Urine Blood Neg Urine Nitrite Neg Urine Bilirubin Neg Urine Urobilinogen < 2.0 Ur Leukocyte Esterase Neg Urine WBC (Auto) 1.0 Urine RBC (Auto) 2.0 U Epithel Cells (Auto) 2.0 Urine Bacteria (Auto) 1+ Urine Mucus Few Critical care attestation.: If time is entered above; I have spent that time in minutes in the direct care of this critically ill patient, excluding procedure time. ED Disposition Clinical Impression: Sore throat, Vomiting Disposition: TO HOME OR SELFCARE Is pt being admited?: No Does the pt Need Aspirin: No Condition: Stable Instructions: Abdominal Pain (ED) Additional Instructions: Return to the emergency department should you develop worsening symptoms, inability to tolerate food or liquids, high fever or any other concerns Prescriptions: Ciprofloxacin HCl [Ciprofloxacin TAB] 500 mg PO Q12HR #14 tab Ibuprofen [Motrin 800 MG tab] 800 mg PO Q8HR PRN #20 tablet PRN Reason: Pain, Moderate (4-6) HYDROcodone/APAP 5-325 [Narka 5/325] 1 - 2 each PO Q6HR PRN #10 tablet PRN Reason: Pain Promethazine [Phenergan] 25 mg PO Q6HR PRN #20 tab PRN Reason: Nausea Referrals: [facility] [Outside] - 3-5 Days Time of Disposition: 00:04
[2019-11-22 23:54] LABS: Bacteria,Urine 1+ /HPF (Negative); Bilirubin,Urine NEG (Negative); Blood,Urine NEG (Negative); Color,Urine Yellow (Yellow); Mucus,Urine FEW /HPF; Protein,Urine <15 mg/dL mg/dL (Negative); Urobilinogen,Urine < 2.0 mg/dL (<2.0)
== END 2019-11-23 00:10 | disposition home or self-care (01) ==
LOC: ED 16:59
DX: J02.9 Acute pharyngitis, unspecified (principal); R11.2 Nausea with vomiting, unspecified; R19.7 Diarrhea, unspecified; F17.210 Nicotine dependence, cigarettes, uncomplicated; Z90.710 Acquired absence of both cervix and uterus; Z90.89 Acquired absence of other organs; Z79.899 Other long term (current) drug therapy; Z88.8 Allergy status to other drugs, medicaments and biological substances
CPT/HCPCS: 81001

== ENCOUNTER 2020-01-04 18:08 | Emergency (ER) | payer SELFPAY ==
[2020-01-04 18:18] VITALS: BP 151/77
--- NOTE | 2020-01-04 18:24 | Emergency Department Report ---
Chief Complaint: Extremity Injury, Lower Stated Complaint: LFT LEG PAIN/LOWER BACK PRESSURE Time Seen by Provider: 01/04/20 18:17 - HPI History of Present Illness: 54 y/o female comes in for chronic intermittent left leg swelling times 1 year. Patient reports she has been seen for this in the past. She reports that she has a large uterus. She has not taken any pain medications and is not wearing support hoses. - Exam Physical Exam: AxO times 3 NAD Left leg FROM no edema no tenderness no redness. Patient has multiple broken veins and varicose veins. No concern for infection. Ambulatory without difficulties MSE screening note: Focused history and physical exam performed. Due to findings the following was ordered: 54 y/o female comes in for chronic intermittent left leg swelling times 1 year. Patient reports she has been seen for this in the past. She reports that she has a large uterus. She has not taken any pain medications and is not wearing support hoses. Recommend to wear support hoses OTC pain medications and follow up with a Primary Care Provider ED Disposition for [facility] Disposition: MED SCREENING EXAM-LEFT Is pt being admited?: No Does the pt Need Aspirin: No Condition: Stable Additional Instructions: Recommend to wear support hoses OTC pain medications and follow up with a Primary Care Provider Referrals: HERNANDO JEAN BAPTISTE MD [Staff Physician] - 3-5 Days
== END 2020-01-04 19:00 | disposition left against medical advice (07) ==
LOC: ED 18:08
DX: M79.89 Other specified soft tissue disorders (principal); Z88.8 Allergy status to other drugs, medicaments and biological substances
CPT/HCPCS: 99281